=== PATIENT | male | born 2000 | race African-American/Black ===

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

== ENCOUNTER 2019-09-17 19:59 | Emergency (ER) | payer OTHER ==
[~2019-09-17] VITALS: Ht 167.6 cm; Wt 77.1 kg
[~2019-09-17 19:59] MED LIST changes: +CLARITIN-D 121 EAC1 ORAL
[2019-09-17 20:39] VITALS: BP 129/81
--- NOTE | 2019-09-17 20:48 | Emergency Room Report ---
History of Present Illness General Chief Complaint: Constipation Source: Patient Present Illness HPI Patient is a 19-year-old male who presents after increased abdominal discomfort. Reports having generalized abdominal discomfort for several days. He states that he had been having decreased bowel movements. He reports having vomiting several days ago. Denies any fever.Had been having some small amount of bowel movement. Prior history of asthma. Denies any fever or change in medication. Denies any recent bloody stools. Reports having increased bloating. Denies any prior surgical procedures. Allergies: Coded Allergies: WALNUT (Verified Allergy, Mild, 04/06/17) Uncoded Allergies: wheat, dairy (Allergy, Unknown, 11/05/13) COVID-19 Screening Contact w/high risk pt: No Experienced COVID-19 symptoms?: No COVID-19 Testing performed BUSINESS ANALYST: No Patient History Past Medical History: see triage record Reviewed Nursing Documentation: PMH: Agreed; PSxH: Agreed Nursing Documentation-PMH Hx Asthma: Yes Review of Systems All Other Systems: negative except mentioned in HPI Physical Exam Vital Signs Date Time Temp Pulse Resp B/P (MAP) Pulse Ox O2 Delivery O2 Flow Rate FiO2 09/17/19 20:20 99.0 86 18 129/81 (97) 99 Room Air Sp02 EP Interpretation: reviewed, normal General Appearance: normal inspection, well appearing, no apparent distress, alert, GCS 15 Head: atraumatic ENT: normal ENT inspection, hearing grossly normal, normal voice Neck: normal inspection, full range of motion, supple, no bony tend Respiratory: normal inspection, lungs clear, normal breath sounds, no respiratory distress, no retraction, no wheezing Cardiovascular #1: regular rate, rhythm, no edema Gastrointestinal: normal inspection, normal bowel sounds, non tender, soft, no guarding, no hernia Genitourinary: no CVA tenderness Musculoskeletal: normal inspection, back normal, normal range of motion Neurologic: alert, motor strength/tone normal, director of bands III-XII nml as tested, responsive, speech normal, normal inspection Psychiatric: normal inspection, judgement/insight normal, mood/affect normal Medical Decision Making Diagnostic Impression: Primary Impression: Nonspecific abdominal pain Additional Impression: Constipation ER Course Patient presented for abdominal discomfort. Differential diagnosis include was not limited to fecal impaction, gastroenteritis, bowel obstruction among others. Patient has a benign exam and does not appear to require any imaging or laboratory testing at this time. Patient does not appear to have any evidence of systemic toxicity and benign abdominal exam. No evidence of obstruction at this time. Appears to be stable for outpatient management and trial of bowel regimen. Patient is given prescription for lactulose. He was advised to return if he has localized pain persistent vomiting or any other concerns. Patient was agreeable with discharge plan. The patient is advised to follow up with primary care doctor in 1-2 days. Patient is advised to return if any worsening condition or if any changes in status that are concerning. This report is dictated with [email or web address] dialysis clinical manager software which may occasionally lead to discrepancies related to use of this software. Last Vital Signs Date Time Temp Pulse Resp B/P (MAP) Pulse Ox O2 Delivery O2 Flow Rate FiO2 09/17/19 20:39 99.0 86 18 129/81 99 Room Air Status: improved Disposition: HOME, SELF-CARE Condition: Stable Scripts Lactulose (LACTULOSE*) 20 Gm/30 Ml Solution 15 ML ORAL NEEDED for constipation, #120 ML 0 Refills Prov: Greg Alford MD 09/17/19 Referrals: [facility],REFERR[facility] (PCP) Greg Alford MD Sep 17, 2019 20:48
[2019-09-17] MEDS ORDERED: LACTULOSE20 GM/301 ORAL (21:02)
[2019-09-17 21:05] VITALS: BP 122/78
== END 2019-09-17 21:05 | disposition home or self-care (01) ==
LOC: EMR 20:31
DX: R10.9 Unspecified abdominal pain (principal); R11.10 Vomiting, unspecified; Z91.018 Allergy to other foods
CPT/HCPCS: 99282

== ENCOUNTER 2019-10-10 12:05 | Emergency (ER) | payer OTHER ==
[~2019-10-10] VITALS: Ht 167.6 cm; Wt 63.5 kg
[~2019-10-10 12:05] MED LIST changes: +LACTULOSE20 GM/301 ORAL
[2019-10-10 12:28] VITALS: BP 128/75
[2019-10-10] MEDS ORDERED: IBUPROFEN600 M1 ORAL (13:05)
--- NOTE | 2019-10-10 13:06 | Emergency Room Report ---
History of Present Illness General Chief Complaint: Upper Extremity Injury Source: Patient Present Illness HPI 19-year-old male presents with right shoulder pain, after he grabbed a bar and yanked against it, he endorses right shoulder pain aggravated with movement alleviated the rest severity is moderate, intermittent, patient is able to move his right shoulder patient wants to make sure there is nothing wrong with it, no numbness no tingling patient presents for evaluation and treatment Allergies: Coded Allergies: WALNUT (Verified Allergy, Mild, 04/06/17) Uncoded Allergies: wheat, dairy (Allergy, Unknown, 11/05/13) COVID-19 Screening Contact w/high risk pt: No Experienced COVID-19 symptoms?: No 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 Patient History Past Medical History: see triage record Reviewed Nursing Documentation: PMH: Agreed; PSxH: Agreed Nursing Documentation-PMH Hx Asthma: Yes Review of Systems All Other Systems: negative except mentioned in HPI Physical Exam Vital Signs Date Time Temp Pulse Resp B/P (MAP) Pulse Ox O2 Delivery O2 Flow Rate FiO2 10/10/19 12:09 98.6 91 19 124/72 (89) 96 Room Air General Appearance: well appearing, no apparent distress Head: normocephalic, atraumatic ENT: hearing grossly normal, normal voice Neck: full range of motion, supple Respiratory: no respiratory distress, speaking full sentences Musculoskeletal: other - Right upper extremity: 2+ radial pulse, radial median ulnar nerve intact, sensation above the right deltoid intact, empty can test positive, no obvious deformity, range of motion intact 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 Patient with positive empty can test most likely a rotator cuff injury X-ray negative considered on the differential fracture dislocation Supportive care disposition home with return precautions follow-up with PCP Other X-Ray Diagnostic Results Other X-Ray Diagnostic Results : X-Ray ordered: Right shoulder # of Views/Limited Vs Complete: 3 View Indication: Pain EP Interpretation: Yes Interpretation: no dislocation, no fractures Impression: No acute disease Electronically Signed by: Shawn Garzon MD Last Vital Signs Date Time Temp Pulse Resp B/P (MAP) Pulse Ox O2 Delivery O2 Flow Rate FiO2 10/10/19 12:28 98.6 80 16 128/75 97 Room Air Disposition: HOME, SELF-CARE Condition: Stable Scripts Ibuprofen* (MOTRIN*) 600 Mg Tablet 600 MG ORAL Q8H PRN for FOR PAIN, #30 TAB 0 Refills Prov: Shawn Garzon MD 10/10/19 Referrals: NON PHYSICIAN (PCP) [facility] Patient Instructions: Rotator Cuff Injury Additional Instructions: The patient was provided with discharge instructions, notified to follow-up with a primary care doctor and or specialist in the next 24-48 hours, and to return to the ED if they have worsening of their symptoms. Please note that this report is being documented using [employer] technology. This can lead to erroneous entry secondary to incorrect interpretation by the dictating instrument. Shawn Garzon MD Oct 10, 2019 13:06
[2019-10-10 13:12] VITALS: BP 122/72
--- NOTE | 2019-10-10 13:45 | Diagnostic Imaging Report ---
EXAM: X-RAY XRAY Shoulder Compl R CLINICAL HISTORY: Shoulder pain. COMPARISON: None FINDINGS: Total of 3 views of the right shoulder were obtained. Alignment is anatomic. There is no fracture, bony lesions or erosions. Joint spaces are unremarkable. Surrounding soft tissue is normal. IMPRESSION: NO ACUTE BONY ABNORMALITY.
== END 2019-10-10 13:12 | disposition home or self-care (01) ==
LOC: EMR 12:40
DX: S46.911A Strain of unspecified muscle, fascia and tendon at shoulder and upper arm level, right arm, initial encounter (principal); X50.9XXA Other and unspecified overexertion or strenuous movements or postures, initial encounter; Y93.9 Activity, unspecified; Y92.9 Unspecified place or not applicable; J45.909 Unspecified asthma, uncomplicated; Z91.018 Allergy to other foods
CPT/HCPCS: 73030; Z7502; 99283